=== PATIENT | male | born 1995 | race Caucasian/White ===

== ENCOUNTER 2022-02-04 01:24 | Emergency (ER) | payer OTHER ==
[~2022-02-04] VITALS: Ht 193 cm; Wt 79.4 kg
[2022-02-04] MEDS ORDERED: morphine INJ 10 MG/ML 1ML (SYR OR VIAL) IVP STA (01:48)
[2022-02-04 02:00] LABS: HEMATOCRIT 43 % (40-54); HEMOGLOBIN 14.6 g/dL (13.3-17.7); MEAN CORPUSCULAR HEMOGLOBIN 30 pg (25-34); MEAN CORPUSCULAR HGB CONC 34 g/dL (32-36); MEAN CORPUSCULAR VOLUME 89 fL (80-99); MEAN PLATELET VOLUME 9.4 fL (9.0-12.2); PLATELET COUNT 334 10^3/uL (130-400); WHITE BLOOD COUNT 20.8 10^3/uL (4.3-11.0)
[2022-02-04 02:12] LABS: ALBUMIN 4.6 GM/DL (3.2-4.5); POTASSIUM 3.3 MMOL/L (3.6-5.0)
[2022-02-04 02:13] LABS: CALCIUM 8.9 MG/DL (8.5-10.1)
[2022-02-04 02:15] LABS: TOTAL PROTEIN 7.3 GM/DL (6.4-8.2)
[2022-02-04 02:17] LABS: BILIRUBIN,TOTAL 0.8 MG/DL (0.1-1.0)
[2022-02-04 02:19] LABS: CREATININE SERUM 1.05 MG/DL (0.60-1.30)
[2022-02-04 02:20] LABS: BILIRUBIN,DIRECT 0.3 MG/DL (0.0-0.3); BILIRUBIN,INDIRECT 0.5 MG/DL
[2022-02-04] MEDS ORDERED: TETANUS,DIPTH,PERTUSS P/F (BOOSTRIX) 0.5 ML VIAL IM ONE (02:30)
[2022-02-04] MEDS ORDERED: BACITRACIN OINTMENT 28 GM TUBE TOP STA (04:41)
[2022-02-04] MEDS ORDERED: KETOROLAC 30 MG/ML VIAL IVP ONE (04:45)
[2022-02-04 04:58] LABS: BILIRUBIN,URINE NEGATIVE (NEGATIVE); CLARITY,URINE CLEAR; COLOR,URINE YELLOW; GLUCOSE, URINE (UA) NEGATIVE (NEGATIVE); KETONES,URINE NEGATIVE (NEGATIVE); LEUKOCYTE ESTERASE ,URINE NEGATIVE (NEGATIVE); NITRITE,URINE NEGATIVE (NEGATIVE); PH,URINE 5.5 (5-9); PROTEIN,URINE NEGATIVE (NEGATIVE)
[2022-02-04 05:06] LABS: BACTERIA,URINE NEGATIVE /HPF; SQUAMOUS EPITHELIAL CELL,UR 0-2 /HPF
[2022-02-04] MEDS ORDERED: NS 100 ML (IVPB) BAG IV ONE (05:30)
[2022-02-04] MEDS ORDERED: IOHEXOL 350 MG/ML 100 ML (OMNIPAQUE 350) VIAL IV ONE (05:30)
[2022-02-04] MEDS ORDERED: HOLD METFORMIN - RECEIVED CONTRAST 20 ML VIAL IV SCH (05:30)
[2022-02-04] MEDS ORDERED: CATHETER FLUSH 10 ML SYR IV PRN (05:30)
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
[2022-02-04] MEDS ORDERED: OXYC1TAB87 PO (06:50)
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
[2022-02-04] MEDS ORDERED: BACI28.4 TP (06:53)
[2022-02-04 06:58] VITALS: BP 125/82
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
[2022-02-04] MEDS ORDERED: BACITRACIN OINTMENT 28 GM TUBE TOP ONE (09:00)
== END 2022-02-04 07:06 | disposition home or self-care (01) ==
LOC: ER 01:26
DX: S92.331A Displaced fracture of third metatarsal bone, right foot, initial encounter for closed fracture (principal); S92.341A Displaced fracture of fourth metatarsal bone, right foot, initial encounter for closed fracture; S92.351A Displaced fracture of fifth metatarsal bone, right foot, initial encounter for closed fracture; S20.211A Contusion of right front wall of thorax, initial encounter; S40.812A Abrasion of left upper arm, initial encounter; M79.89 Other specified soft tissue disorders; V29.49XA Motorcycle driver injured in collision with other motor vehicles in traffic accident, initial encounter
CPT/HCPCS: 71045; 71260; 73502; 73610; 73630; 74177; 80048; 80076; 81000; 85027; 93041; 99285; G0480; L2114; 36415; 80320; 90715

== ENCOUNTER → 2022-02-09 | Outpatient (CLI) | payer OTHER ==
[~2022-02-09] MED LIST: BACI28.4 TP; OXYC1TAB87 PO
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
== END ==
LOC: RAD 17:41
PROVIDERS: ATTEND Nurse Practitioner
DX: M25.422 Effusion, left elbow (principal); M25.522 Pain in left elbow
CPT/HCPCS: 73080